=== PATIENT | female | born 1995 | race Caucasian/White ===

== ENCOUNTER 2023-11-22 06:38 | Emergency (ER) | payer OTHER, SELFPAY ==
[2023-11-22 06:49] VITALS: BP 111/77
--- NOTE | 2023-11-22 06:56 | ED.GENMED ---
History of Present Illness
General
Chief Complaint: Heart Rate Problem
Source: patient
Time Seen by Provider: 11/22/23 06:47
History of Present Illness
History of Present Illness:
20-year-old female presents to the emergency room complaining of palpitations. Patient has been experiencing the symptoms for about an hour. She has a history of SVT. She has received adenosine in the past with success. She has a prescription
for propranolol to take as needed for these episodes. She has had episodes since her last ER visit in which the propranolol worked. However today she has taken a total of 20 mg without cessation of the rhythm. Patient has no other complaints.
Past History
Past History
ED Past Medical History: Arrthythmia (SVT)
ED Past Surgical History: Gynecological and Tonsilectomy
Social History
Tobacco: Non-smoker
Alcohol: None
Personal: Single
Living: with family
Employment: Employed
Family History
Family History: Other (No history of SVT); Negative Sudden
Phy Exam
Physical Exam
Physical Exam:
General: Awake, Alert, Oriented X3. Somewhat anxious
Vitals: Tachycardic
Head: Atraumatic
Eyes: Pupils equal, EOMI
Throat: Airway intact, no exudates
Neck: Trachea midline
Lungs: Clear and equal b/l
Heart: Tachycardic, no murmurs
Abd: Soft, Nontender, No pulsatile mass
Neuro: No murmurs
Skin: Warm, dry, no rash
Extremities: pulses equal b/l, no edema
Course
Orders/Labs/Results
Orders:
Orders
11/22/23 06:38
Electrocardiogram (*1) Urgent
Reason for Study: Tachycardia
EKG- Treatment ONCE
11/22/23 06:58
Adenosine [Adenocard] 12 mg .ROUTE .STK-MED ONE
Adenosine [Adenocard] 6 mg .ROUTE .STK-MED ONE
Adenosine [Adenocard] 6 mg IV NOW STA
11/22/23 07:12
Adenosine [Adenocard] 12 mg IV NOW STA
11/22/23 07:14
EKG [Electrocardiogram (*1)] Urgent
Reason for Study: Bradycardia / Tachycardia
EKG- Treatment ONCE
Vital Signs
Initial and Last Documented VS:
Initial Vital Signs
Pulse Resp
176 12
11/22/23 06:47 11/22/23 06:47
Last Documented Vital Signs
Temp Pulse Resp BP Pulse Ox
98.4 F 91 17 103/62 97
11/22/23 07:05 11/22/23 07:25 11/22/23 07:25 11/22/23 07:25 11/22/23 07:25
MDM/Problems Addressed
Differential Diagnosis Includes:
svt, sinus tachy, pe
MDM/Problems Addressed:
Patient arrives in SVT. She has a known history of SVT and is been evaluated by EPS. Patient broke after 12 mg of adenosine. She is now in sinus rhythm and is maintaining sinus rhythm. Patient stable for discharge home.
*Pulse Oximetry
Patient hypoxic: no
*EKG
Interpreted by ED Provider?: Yes
Interpretation: abnormal
Heart Rate: 170
Rate: tachycardiac
Rhythm: SVT
QRS Pattern: normal QRS
Ischemia: non-specific ST changes
*Pvc Loader Interpretation
Rate: tachycardiac
Interpretation: abnormal
Heart Rate: 170
Rhythm: SVT
*Critical Care Note
Total Time (30-74mins, 75-104mins- exclusive of procedures): Not Applicable
Patient Management
Social determinants of health affecting care: Strong social support
ED Attending Note
-
Portions of this chart may have been created with voice recognition software.� Occasional wrong word or��sound alike� substitutions may have occurred due to the inherent limitations of voice recognition software.
Discharge Plan
Departure
Patient Disposition: Home (Routine Discharge)
Date of Disposition: 11/22/23
Time of Disposition: 07:16
Patient with high blood pressure during this ER visit?: No
Condition: Good
Discharge Problem:
Paroxysmal supraventricular tachycardia
Instructions: Supraventricular tachycardia (SVT)
Prescriptions:
No Action
propranolol 10 MG tablet
10 mg PO PRN PRN (Reason: tachycardia/SVT) Qty: 30 2RF
melatonin 5 MG tablet
5 mg PO HS
Activity Restrictions/Additional Instructions:
Follow up with Dr. Chapa when he returns to the office.
Interventions
Interventions:
*Risk Screen - Suicide Last Done: 11/22/23 07:00
*General Assessment Last Done: 11/22/23 07:00
*Neglect/Abuse Screening Last Done: 11/22/23 07:00
*ED COVID-19 Vaccine History Last Done: 11/22/23 07:00
*Nursing Disposition Last Done: 11/22/23 07:34
ED- Cardiac Assessment Last Done: 11/22/23 07:00
ED- Pulmonary Assessment Last Done: 11/22/23 07:00
Discharge Date and Time
Discharge Date/Time: 11/22/23 07:34
Print Language: UKRAINIAN
[2023-11-22 07:00] VITALS: BP 120/103
[2023-11-22 07:05] VITALS: BP 111/77; BP 114/100
[2023-11-22] MEDS: ADENOCARD 6 MG IV (07:06)
[2023-11-22] MEDS: ADENOCARD 12 MG IV (07:07)
[2023-11-22 07:10] VITALS: BP 117/90
[2023-11-22 07:15] VITALS: BP 132/76
[2023-11-22 07:25] VITALS: BP 103/62
== END 2023-11-22 07:34 | disposition home or self-care (01) ==
LOC: EMR 06:38
PROVIDERS: EMERGENCY PHYSICIAN Emergency Medicine; FAMILY PHYSICIAN Internal Medicine
DX: I47.19 Other supraventricular tachycardia (principal)
CPT/HCPCS: 99284; 96374; 93005; J0153

== ENCOUNTER 2024-04-04 07:56 | Day surgery (SDC) | payer OTHER, SELFPAY ==
[2024-03-27 10:10] VITALS: BMI 34.1
[2024-03-27 10:56] LABS: % Basophils 0.4 % (0-2); % Eosinophils 1.2 % (0-6); % Immature Granulocytes 0.2 % (0-0.5); % Lymphocytes 35.5 % (20.5-51.1); % Monocytes 7.7 % (1.7-9.3); Absolute Eosinophils 0.1 10^3/uL (0-0.7); Absolute Lymphocytes 1.8 10^3/uL (1.2-3.4); Absolute Monocytes 0.4 10^3/uL (0.1-0.6); Absolute Neutrophils 2.8 10^3/uL (1.4-6.5); Hematocrit 36.6 % (37.0-47.0); Hemoglobin 12.2 g/dL (12.0-16.0); Mean Corp Hgb Conc. 33.3 g/dL (33.0-37.0); Mean Corpuscular Hgb 27.9 pg (27.0-31.0); Mean Corpuscular Volume 83.6 fL (81.0-99.0); Mean Platelet Volume 11.4 fL (7.4-10.4); Nucleated Red Blood Cells % 0 %; Platelet Count 222 10^3/uL (130-400); Red Blood Cell Count 4.38 10^6/uL (4.20-5.40); Red Cell Dist. Width 14.3 % (11.5-14.5); White Blood Cell Count 5.1 10^3/uL (4.8-10.8)
[2024-03-27 11:10] LABS: HCG, Serum Qualitative Screen Negative
[2024-03-27 11:14] LABS: ALT (SGPT) 21 U/L (0-35); AST (SGOT) 24 U/L (14-36); Albumin 4.7 g/dl (3.5-5.0); Alkaline Phosphatase 78 U/L (38-126); Blood Urea Nitrogen 7 mg/dl (7-17); Calcium 9.7 mg/dl (8.4-10.2); Carbon Dioxide 25 mmol/L (22-30); Chloride 104 mmol/L (98-107); Estimated Creatinine Clearance > 125 ml/min; Glucose 90 mg/dl (70-99); Magnesium 2.1 mg/dl (1.6-2.3); Potassium 4.9 mmol/L (3.5-5.1); Sodium 140 mmol/L (135-145); Total Bilirubin 0.4 mg/dl (0.2-1.3); Total Protein 7.1 g/dl (6.3-8.2); eGFR > 60.00
[2024-04-04] VITALS (9 sets, daily range): BP systolic 103–128; BP diastolic 63–74; BMI 32.9
[2024-04-04 08:22] LABS: HCG, Urine Qualitative Screen Negative
[2024-04-04] MEDS: TYLENOL 650 MG PO (14:29)
--- NOTE | 2024-04-04 15:00 | ITS.CL.ABL ---
[employer] - Ablation
Ablation
Procedure Report:
ELECTROPHYSIOLOGIC STUDY AND POSSIBLE ABLATION
Procedure Date: April 04, 2024
Primary Care Provider: Dr. Norberto Harrison
INDICATION: Supraventricular tachycardia, palpitations
HISTORY:
Recurrent symptomatic supraventricular tachycardia which has required several visits to the emergency department. She has had documented narrow QRS complex tachycardia at up to 170 bpm which abruptly terminates with adenosine. Attempts at symptom
control with beta-katrina have failed. She presents now for EP study and ablation.
'Time-out' was called and confirmed.
Presenting rhythm: Sinus rhythm
PROCEDURE:
Ultrasound Guidance performed by nj was utilized for femoral venous Vascular Access b/l. Vascular US demonstrated the typical vasccular anatomy.
Multipolar recording catheters were positioned at the HRA, RVA, His bundle and CS (for left atrial recording/mapping).
Mapping, recording and pacing were performed from these sites.
Baseline measurements were recorded and analyzed. Antegrade and retrograde AV socorro Wenckebach CLs were obtained.
Programmed electrical stimulation was performed. Premature extrastimuli were delivered from the HRA, CS and RVA catheters.
Burst atrial pacing was also performed from HRA and LA (CS) sites.
RI: 143
QRS: 95
QT: 403
AH: 42
HV: 54
Antegrade AVW: 380
During catheter placement, narrow QRS complex tachycardia with no discernible P waves on the surface electrogram was induced. Coronary sinus activation is proximal to distal and atrial activation is on time with ventricular activation. Burst
ventricular pacing at 30 ms slower than the tachycardia cycle length advancing the atrial electrogram to the paced cycle length. With termination of pacing there is a V-A-H-V response practically excluding atrial tachycardia as the SVT mechanism,
PPI - TCL is 155 ms, atrial activation during SVT began within the first 70ms of the QRS complex excluding AVRT and making AT unlikely, during ventricular overdrive pacing of SVT, there is atrial advancement with the paced VA interval from onset of
the pacing stimulus to the subsequent earliest atrial activation minus the VA interval during SVT > 85 ms consistent with AVNRT, the transition zone was identified during onset of ventricular overdrive pacing and the number of stable fully paced QRS
beats required to first advance atrial activation to the rate of ventricular overdrive pacing is 5, c/w AVNRT.
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 Tachycardia could be terminated with burst ventricular pacing.
Following determination of the SVT mechanism, [employer] 3-D mapping system was used to assist in mapping/targeting ablation site(s.)
The AV socorro slow pathway was mapped and targeted with RF energy using a 4 mm tip non-irrigated mapping/ablation catheter. RF applications initially did not result in accelerated junctional rhythm. New site was mapped with the assistance of a
Ramp sheath to allow greater reach. At this site RF application resulted in nearly immediate accelerated junctional rhythm. Retrograde junctional - atrial conduction was evaluated during RF application and at no point was VA delay or block
observed. At no point was AV delay or heart block observed.
PES stimulation was repeated both in the baseline state and on isoproterenol and AV socorro jumps with single AV socorro echoes were observed. SVT could no longer be induced.
After a 20 minute waiting period, stimulation was repeated. And no SVT could be induced. No AV socorro jumps or echoes were observed with programmed electrical stimulation at the end of the study.
COMPLICATIONS: None
SUMMARY:
EPS with CS
EPS with drug infusion
Mapping and ablation of SVT
3-D mapping
RECOMMENDATIONS:
Discharge to home today
Copy to:
Dr. Norberto Harrison
== END 2024-04-04 15:05 | disposition home or self-care (01) ==
LOC: CATH 07:56
PROVIDERS: ATTENDING PHYSICIAN Internal Medicine Cardiovascular Disease; FAMILY PHYSICIAN Internal Medicine
DX: I47.10 Supraventricular tachycardia, unspecified (principal); R00.2 Palpitations; E66.9 Obesity, unspecified; Z68.34 Body mass index [BMI] 34.0-34.9, adult; F90.9 Attention-deficit hyperactivity disorder, unspecified type; I49.3 Ventricular premature depolarization; Z98.84 Bariatric surgery status; Z88.6 Allergy status to analgesic agent; I49.8 Other specified cardiac arrhythmias
CPT/HCPCS: C1730; C1894; C1769; C1733; C1893; 36415; 80053; 81025; 83735; 84703; 85025; 93005; 93623; 93653; C1760